=== PATIENT | male | born 1990 | race Two or more races ===

== ENCOUNTER 2024-11-11 06:11 | Day surgery (SDC) | payer MEDICAID ==
[~2024-11-11] VITALS: Ht 182.9 cm; Wt 74.8 kg
[2024-11-11] MEDS: ceFAZolin 2 GM/D5W50ml 50 ML IV ONE (06:39)
[2024-11-11] MEDS ORDERED: fentaNYL CITRATE 100 MCG/2 ML VL ONE (07:21)
[2024-11-11] MEDS ORDERED: MIDAZOLAM HCL 2MG/2ML 2ml VIAL (1mg/ml) ONE (07:22)
[2024-11-11] MEDS ORDERED: ROCURONIUM 10MG/ML 10ML VIAL IV ONE (07:22)
[2024-11-11] MEDS ORDERED: PROPOFOL 10 MG/ML 20 ML IV ONE (07:22)
[2024-11-11] MEDS ORDERED: LIDOCAINE 2% (LOCAL ANESTH.) PF 5ml SDV ONE (07:23)
[2024-11-11] MEDS ORDERED: METOCLOPRAMIDE HCL 5MG/ml INJ 2ml VIAL ONE (07:23)
[2024-11-11] MEDS ORDERED: ONDANSETRON HCL 4 MG/2 ML VIAL ONE (07:23)
[2024-11-11] MEDS ORDERED: HYDROmorphone HCL 2 MG/ML VL/or syr ONE (08:13)
[2024-11-11] MEDS: BUPIVACAINE 0.25% INJ 50ML VIAL ONE (08:30)
[2024-11-11] MEDS ORDERED: DexAMETHasone SOD PHOS 10MG/1ML VIAL INJ ONE (08:48)
[2024-11-11] MEDS ORDERED: SUGAMMADEX 200mg/2ml Vial (100MG/ML) IV ONE (08:48)
[2024-11-11] MEDS ORDERED: LIDOCAINE W/ EPINEPHRINE 1% 20ML VIAL ONE (08:48)
[2024-11-11 09:08] VITALS: PULSE 85; RESP 14; TEMP 97.1
--- NOTE | 2024-11-11 09:10 | DVHOP2 ---
Operative Report - 2 Report Details Date: 11/11/24 Preop Diagnosis: Right shoulder type 3 AC separation Postop Diagnosis: Right shoulder type 3 AC separation Surgeon: Gus Ni MD Anesthesiologist: Adrian gramajo CRNA Anesthesia: General Implant: Arthrex AC tight rope Consent: The patient was informed of the risks and benefits of the procedure. These include but are not limited to complications of anesthesia, postoperative infection, incomplete relief of symptoms, recurrence of symptoms, damage to blood vessels, nerves and tendons, deep venous thrombosis, pulmonary embolism and possible need for repeat surgery in the future. 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 Patient was given general anesthetic. He was given IV Ancef. He is positioned beach chair. I attempted to perform closed reduction without success. C-arm was brought to obtain publishing manager films and to aid in another reduction attempt which was not successful. The right shoulder and upper extremity were prepped and draped in sterile fashion. Surgical time-out was performed verifying patient, laterality, and procedure. I made a saber-type incision of the right shoulder between the AC joint and the coracoid. Subcutaneous dissection performed with scissors. Bovie used for hemostasis. I then did an incision of the periosteum across the AC joint in line with the clavicle. I then used the Bovie to elevate periosteum off the underlying clavicle and AC joint. I again attempted open reduction without success. I then measured 1 cm off the distal clavicle then used a saw to cut the bone. Bone removed. I then used a saw to shave a wafer posteriorly to reduce the risk of impingement. I then used a rasp to smooth the edges. I then used the C-arm to guide positioning of the three seven guide pin. I then drilled through the distal clavicle and through the coracoid under C-arm guidance. Guide pin was then removed. I then attempted to pass the Arthrex AC tight rope however the tip dislodged before I was able to get it below the coracoid. I had to dissect further to pull this out and eventually had to just cut the end off and abandoned this device. I then re established the position of the guide pin and then used a 4 mm ream over the guide pin to increase the diameter of the tunnel. I was then able to pass a 2nd tight rope below the coracoid and I then flipped the tight rope and pulled back and verified that it was correctly positioned with C-arm fluoroscopy. I then reduced the clavicle with assistance and shuttled down the button onto the top of the clavicle. It was cinched as tight as possible and C-arm confirmed AC joint reduction. I irrigated the wound copiously with normal saline bulb syringe. Periosteal tissue was closed with 0 Vicryl. SubQ was closed with 2-0 Vicryl. Skin closed with keaton wound dressed sterilely and shoulder immobilizer applied. Patient tolerated the procedure well was brought to the recovery room in stable condition. Condition Stable Disposition Home GUS NI MD Nov 11, 2024 09:10
[2024-11-11] MEDS: ONDANSETRON HCL 4 MG/2 ML VIAL IV ONE ×3 (09:53→11:00)
[2024-11-11] MEDS: KETOROLAC TROMETH 30 MG/ML 1ML VIAL IV ONE (09:55)
[2024-11-11] MEDS: ACETAMINOPHEN IV 1000 MG/100ML (10MG/ML) IV ONE (09:56)
[2024-11-11] MEDS: METOCLOPRAMIDE HCL 5MG/ml INJ 2ml VIAL IV ONE (10:02)
[2024-11-11] MEDS: KETOROLAC TROMETH 30 MG/ML 1ML VIAL ONE (10:03)
[2024-11-11] MEDS: ACETAMINOPHEN IV 100 ML IV ONE (10:04)
[2024-11-11] MEDS: ONDANSETRON HCL 4 MG/2 ML VIAL ONE (10:04)
[2024-11-11] MEDS: HYDROmorphone HCL 2 MG/ML VL/or syr IV PRN (10:20)
[2024-11-11 11:20] VITALS: BP 135/69; PULSE 82; RESP 18; O2SAT 96
--- NOTE | 2024-11-11 16:09 | DVH ---
EXAM: XY R SHOULDER 1V XRAY HISTORY: OPEN ACROMIOCLAVICULAR JOINT RECONSTRUCTION COMPARISON: Report of right shoulder MRI dated 10/06/2024. TECHNIQUE: 3 fluoroscopic spot views of the right shoulder were performed. Fluoro time 55.8 seconds; radiation d ose 4.98 mGy. FINDINGS/IMPRESSION: Postoperative changes of tight rope fixation between the right distal clavicle and coracoid process.
--- NOTE | 2024-11-11 17:08 | DVH ---
C-ARM FLUOROSCOPY: PROCEDURE: AC joint reconstruction FLUOROSCOPY TIME: 55.8 seconds DAP: 4.98 mgy FINDINGS: Spot intraoperative C arm radiographs demonstrating AC joint reconstruction. IMPRESSION: Please refer to surgical report for detailed findings.
== END 2024-11-11 11:20 | disposition home or self-care (01) ==
LOC: SUR 06:11
PROVIDERS: ATTEND Orthopaedic Surgery
DX: S43.101A Unspecified dislocation of right acromioclavicular joint, initial encounter (principal); V89.9XXA Person injured in unspecified vehicle accident, initial encounter; Y93.55 Activity, bike riding; Y92.89 Other specified places as the place of occurrence of the external cause; F17.200 Nicotine dependence, unspecified, uncomplicated; J45.909 Unspecified asthma, uncomplicated; M25.511 Pain in right shoulder
CPT/HCPCS: 23120; 23800; 73020; 76000; J0690; J1100; J1171; J1885; J2003; J2250; J2405; J2704; J2765; J3010; J0131; J3490